=== PATIENT | female | born 1995 | race Caucasian/White ===

== ENCOUNTER 2018-05-16 21:19 | Emergency (ER) | payer BC, MEDICAID ==
[2018-05-17 01:09] LABS: URINE BLOOD (Dip) POC Negative (NEGATIVE); URINE GLUCOSE (Dip) POC Negative (NEGATIVE); URINE KETONES (Dip) POC Negative (NEGATIVE); URINE LEUKOCYTE EST (Dip) POC Negative (NEGATIVE); URINE NITRITE (Dip) POC Negative (NEGATIVE); URINE TOTAL PROTEIN POC Negative (NEGATIVE)
[2018-05-17 01:09] LABS: URINE PH (Dip) POC 5.5 (5.0-8.5)
[2018-05-17] MEDS: IBUPROFEN 800 MG TAB PO (01:16)
== END 2018-05-17 01:51 | disposition home or self-care (01) ==
LOC: E/R 21:19
DX: X50.0XXA Overexertion from strenuous movement or load, initial encounter (principal); Y92.89 Other specified places as the place of occurrence of the external cause
CPT/HCPCS: 81003; 81025; 99282